=== PATIENT | male | born 2000 | race Caucasian/White ===

== ENCOUNTER 2025-09-05 02:49 | Emergency (ER) | payer OTHER ==
[~2025-09-05] VITALS: Ht 198.1 cm; Wt 79.8 kg
[~2025-09-05 02:49] MED LIST: ALBU90OI; ALBU90OI INH; AMOCLA250S PO; AMOX50SU PO; AMPDEX5 PO; ANTOXYBENA OT; AZIT100SU PO; CODACEE120 PO; CRUTCH4 USE; Cortisporin Ear10 ML RIGHTEAR; METPHE20CR PO; MUPI2TC TOP; Norco 5-325 Ta1 EACH PO; RISP.5 PO; RXCODACESY PO; Tylenol W/Code120 ML PO
[2025-09-05 03:45] VITALS: BP 116/71
[2025-09-05] MEDS ORDERED: Robaxin750 MG PO (03:48)
== END 2025-09-05 03:57 | disposition home or self-care (01) ==
LOC: ER 02:49
DX: R07.89 Other chest pain (principal); J45.909 Unspecified asthma, uncomplicated; Z79.899 Other long term (current) drug therapy
CPT/HCPCS: 71045; 99283-25; A9270